=== PATIENT | male | born 1950 | race Caucasian/White ===

== ENCOUNTER 2023-02-20 00:30 | Day surgery (SDC) | payer BC, SELFPAY ==
[2023-02-13 11:05] VITALS: BMI 32.5
[2023-02-20 08:23] VITALS: BP 185/85; PULSE 68; RESP 18; TEMP 36.8; O2SAT 96; BMI 33.5
[2023-02-20] MEDS: LACTATED RINGERS 1,000 ML 150 ML IV CONT (08:39)
[2023-02-20 08:42] LABS: Glucose Point of Care 156 mg/dl (65-105)
--- NOTE | 2023-02-20 09:11 | PM.HPGS ---
History of Present Illness History of Present Illness Consent: Risks, benefits, and alternatives have been discussed and questions answered. Patient agrees to proceed with procedure. Chief complaint: hx colon polyps Narrative: Jarrod Ann is a 72 year old male Presents for surveillance colonoscopy. Patient's current weight appetite and bowel movements are normal. patient denies abdominal pain. He has had no bleeding. Family history noncontributory. Patient has a history of a tubular adenoma in 2005. Previous colonoscopy 2017 was unremarkable. Review of Systems Review of Systems: Review of systems noncontributory. [facility] Past Medical History Medical History (Updated 01/05/23 @ 10:59 by Juan Cohen MD) Abnormal results of liver function studies Essential (primary) hypertension Obesity Personal history of colonic polyps Type 2 diabetes mellitus without complications Social History Social History (Updated 01/05/23 @ 10:11 by Coral Pereira MA) Smoking status: Never smoker Second hand tobacco smoke exposure: No Alcohol intake: current Drinks per week: 4 Alcohol use details: BEER Substance use: never Substance use type: does not use Lack of Transportation: No Lack of Food: Never True Current Housing: I Have Housing Concerned About Future Housing: No Difficulty Paying Gas/Electric Bills: No Difficulty Paying for Meds: No Currently Unemployed: YES Difficulty w/ Childcare or Family Care: No Living arrangements: with family Occupation/Education: retired Gender identity (if verbalized by the patient): Male Sexual Orientation (if Verbalized by the Patient): Straight or Heterosexual Spiritual care concerns: No Meds Home Medications and Allergies Home Medications Medication Instructions Recorded Confirmed Type amlodipine 5 mg tablet 5 mg PO DAILY 01/05/23 02/20/23 History labetalol 300 mg tablet 300 mg PO Q12H 01/05/23 02/20/23 History lisinopril 20 1 tablet PO DAILY 01/05/23 02/20/23 History mg-hydrochlorothiazide 25 mg tablet pioglitazone 30 mg tablet 30 mg PO DAILY 01/05/23 02/20/23 History Allergies Allergy/AdvReac Type Severity Reaction Status Date / Time Cephalosporins Allergy Mild Rash Verified 02/20/23 08:28 Sulfa (Sulfonamide Allergy Mild Rash Verified 02/20/23 08:28 Antibiotics) theophylline AdvReac Intermediate WEIRD Verified 02/20/23 08:28 FEELINGS Vital Signs Vital Signs - 24 hr 02/20/23 08:23 Temperature 98.2 F Pulse Rate 68 Respiratory Rate 18 Blood Pressure 185/85 H Pulse Oximetry 96 Oxygen Delivery Room Air Exam Narrative: Physical exam reveals patient be alert. Vital signs stable. HEENT exam is unremarkable. Patient is anicteric. Lungs are clear to auscultation and percussion. Heart is without murmur or extra sounds. Abdomen bowel sounds are present soft nontender with no organomegaly. Digital external rectal exam is normal. Assessment and Plan Assessment and plan (1) Personal history of colonic polyps: Code(s): Z86.010 - Personal history of colonic polyps Status: Acute Assessment and Plan: Patient has a distant history of adenomatous colon polyp. Plan for surveillance colonoscopy now. Further recommendations may be given after endoscopy.
--- NOTE | 2023-02-20 09:32 | WPDANESEPPF ---
Anes - Initial Pre Proc Eval Procedure: Operation Date: 02/20/23 09:30 Proposed Procedures p Colonoscopy - Chavez Obrien MD Date/Time: 02/20/23 09:32 Surgeon: Chavez Obrien MD Pre Op Diagnosis: hx colon polyps Patient Data Age: 72 Gender: M Height: 1.83 m Weight: 112 kg Last Vital Signs Temp 36.8 C 02/20/23 08:23 Pulse 68 02/20/23 08:23 Resp 18 02/20/23 08:23 BP 185/85 H 02/20/23 08:23 Pulse Ox 96 02/20/23 08:23 O2 Del Method Room Air 02/20/23 08:23 Allergies Allergy/AdvReac Type Severity Reaction Status Date / Time Cephalosporins Allergy Mild Rash Verified 02/20/23 08:28 Sulfa (Sulfonamide Allergy Mild Rash Verified 02/20/23 08:28 Antibiotics) theophylline AdvReac Intermediate WEIRD Verified 02/20/23 08:28 FEELINGS Home Medications Medication Instructions Recorded Confirmed Type amlodipine 5 mg tablet 5 mg PO DAILY 01/05/23 02/20/23 History labetalol 300 mg tablet 300 mg PO Q12H 01/05/23 02/20/23 History lisinopril 20 1 tablet PO DAILY 01/05/23 02/20/23 History mg-hydrochlorothiazide 25 mg tablet pioglitazone 30 mg tablet 30 mg PO DAILY 01/05/23 02/20/23 History Laboratory Tests 02/20/23 08:34 POC Capillary Glucose 156 mg/dl H mg/dl (65-105) Patient hx anesthesia problems: none Family hx anesthesia problems: none Results Review: All pre-operative results and documents have been reviewed as part of the pre-operative evaluation. [facility] Past Medical History Medical History Abnormal results of liver function studies Essential (primary) hypertension Obesity Personal history of colonic polyps Type 2 diabetes mellitus without complications Social History Social History Smoking status: Never smoker Second hand tobacco smoke exposure: No Alcohol intake: current Drinks per week: 4 Alcohol use details: BEER Substance use: never Substance use type: does not use Lack of Transportation: No Lack of Food: Never True Current Housing: I Have Housing Concerned About Future Housing: No Difficulty Paying Gas/Electric Bills: No Difficulty Paying for Meds: No Currently Unemployed: YES Difficulty w/ Childcare or Family Care: No Living arrangements: with family Occupation/Education: retired Gender identity (if verbalized by the patient): Male Sexual Orientation (if Verbalized by the Patient): Straight or Heterosexual Spiritual care concerns: No Anes - Eval Final PreProcedure Day of Procedure 02/20/23 09:32 Patient weight: obese Heart: regular rate and rhythm Lungs: clear to auscultation Airway: Mallampati scale class II Neurological: alert and oriented Last oral intake: >/= 8 hours ASA classification: III Emergent: no Anesthetic plan: proceed Anesthesia type and monitoring: general GIVS and standard monitoring Results Review: All pre-operative results and documents have been reviewed as part of the pre-operative evaluation. Informed Consent: The patient's anesthetic plan and its attendant risks and benefits were discussed with the patient/family/POA. Questions were solicited and answers provided to the satisfaction of the patient/family/POA.
[2023-02-20 10:06] VITALS: BP 139/84; PULSE 67; RESP 20; O2SAT 97
[2023-02-20 10:16] VITALS: BP 141/86; PULSE 60; RESP 22; O2SAT 98
[2023-02-20 10:23] VITALS: BP 128/76; PULSE 60; RESP 20; O2SAT 95
== END 2023-02-20 10:33 | disposition home or self-care (01) ==
PROVIDERS: PCP Family Medicine; Visit Provider Internal Medicine Gastroenterology
PROC: 0DJD8ZZ Inspection of Lower Intestinal Tract, Via Natural or Artificial Opening Endoscopic (ICD-10-PCS; CPT 45378; principal; 2023-02-20 09:30)
DX: Z12.11 Encounter for screening for malignant neoplasm of colon (principal); K63.5 Polyp of colon; K64.8 Other hemorrhoids; I10 Essential (primary) hypertension; E11.9 Type 2 diabetes mellitus without complications; E66.9 Obesity, unspecified; Z68.33 Body mass index [BMI] 33.0-33.9, adult
CPT/HCPCS: 45380; 82948; 88305; J2704; J7120

== ENCOUNTER 2024-07-14 09:51 | Outpatient (CLI) | payer BC, SELFPAY ==
[2024-07-14 10:41] LABS: Alanine Aminotransferase 34 U/L (6-50); Albumin Level 4.5 g/dL (3.5-5.1); Alkaline Phosphatase 40 U/L (38-126); Anion Gap 10 mmol/L (4-12); Aspartate Amino Transferase 40 U/L (17-59); Bilirubin,Total 0.8 mg/dL (0.2-1.3); Blood Urea Nitrogen 28 mg/dL (9-20); Calcium 9.3 mg/dL (8.4-10.2); Carbon Dioxide 26 mmol/L (22-30); Chloride 100 mmol/L (98-107); Cholesterol 162 mg/dL (0-200); Estimated Glomerular Filt Rate > 60; Glucose 129 mg/dL (65-110); HDL Direct 80 mg/dL; Potassium 4.1 mmol/L (3.4-5.0); Sodium 136 mmol/L (137-145); Triglycerides 45 mg/dL (<150)
[2024-07-14 10:50] LABS: Hemoglobin A1C 5.9 % (<5.7)
[2024-07-14 10:52] LABS: LDL Cholesterol Direct 44 mg/dL
[2024-07-14 11:02] LABS: Creatinine Urine 63.6 mg/dL
[2024-07-14 11:31] LABS: MALB Creatinine Ratio < 9.4 mg/g (0-30); Microalbumin Urine Random < 6.0 mg/L (0-16.7)
== END 2024-07-14 09:52 | disposition home or self-care (01) ==
LOC: ANHLAB 09:53
PROVIDERS: PCP Family Medicine; Visit Provider Family Medicine
DX: E11.9 Type 2 diabetes mellitus without complications (principal); I10 Essential (primary) hypertension
CPT/HCPCS: 36415; 80053; 80061; 82043; 83036